=== PATIENT | female | born 1955 | race Caucasian/White ===

== ENCOUNTER 2016-08-01 13:10 | Emergency (ER) | payer MEDICARE ==
--- NOTE | 2016-08-04 12:41 | ER ---
ADMIT: 08/01/2016 RM/LOC: [facility] MR#: [id number] [address] [place] [id number] MANUELA MORALES [address] [address] Emergency Room Report SEX: F AGE: 60 : 1955 DATE: 08/01/2016 HISTORY OF PRESENT ILLNESS: A female, 60 years of age, unable to sleep due to pain, this has been going on for 2 months. She had a work accident where she had some issues with her back and having now difficulty walking and some numbness and weakness on her right leg. REVIEW OF SYSTEMS: Otherwise negative. PAST MEDICAL HISTORY: 1. Diabetes type 2. 2. Hypertension. 3. Arthritis. 4. Back pain. 5. GERD. 6. Herniated disk. PAST SURGICAL HISTORY: She also has had a thyroidectomy and cholecystectomy. MEDICATIONS: She takes: 1. Atenolol. 2. Gabapentin. 3. Zocor. 4. Omeprazole. 5. Metformin. 6. Glyburide. 7. Phenergan with tizanidine. PHYSICAL EXAMINATION: I am unable to do straight leg exam due to her habitus. VITAL SIGNS: Within normal limits. ADMIT: 08/01/2016 RM/LOC: [facility] MR#: [id number] [address] [address] MANUELA MORALES [address] [address] Emergency Room Report SEX: F AGE: 60 : 1955 EXTREMITIES: Nonedematous. Tenderness in the right mid buttocks area. LABORATORY DATA: Her UA shows rbc's of 5, so she has some mild hematuria. Lumbar strain, no x-rays were done. I contacted Dr. Phan, she stated that Dr. Núñez is supposed to call the patient for a shot in her back, so we sent her on her way with instructions to talk to May, Dr. Núñez's office nurse, who will be calling her this afternoon to set up a time for her lumbar shot. I gave her a muscle relaxer in the form of Valium, but advised that she needs to choose which one she takes, either the tizanidine or the Valium, but not both at the same time, and follow up with Dr. Núñez. Go home now, and no driving. SONNY Mack / Angel Michaud MD / julissa JOB #: [id number] CC: Angel Michuad MD, Attending Physician Dalton Núñez MD, Family Physician
== END 2016-08-01 14:50 | disposition home or self-care (01) ==
LOC: ER 13:10
DX: S39.012A Strain of muscle, fascia and tendon of lower back, initial encounter (principal); R31.9 Hematuria, unspecified; E11.9 Type 2 diabetes mellitus without complications; I10 Essential (primary) hypertension; Z90.49 Acquired absence of other specified parts of digestive tract; Z90.89 Acquired absence of other organs; Z79.84 Long term (current) use of oral hypoglycemic drugs; Z79.899 Other long term (current) drug therapy; X58.XXXA Exposure to other specified factors, initial encounter

== ENCOUNTER 2016-08-04 07:18 | Day surgery (SDC) | payer MEDICARE ==
[~2016-08-04] VITALS: Ht 160 cm; Wt 75.0 kg
--- NOTE | 2016-08-05 08:22 | OR ---
ADMIT: 08/04/2016 RM/LOC: [facility] MR#: [id number] [address] [address] ANGELITO SYD SIMRIA [address] [id number] Operative/Delivery Room Report SEX: F AGE: 60 : 1955 SURGERY DATE: 08/04/2016 SURGEON: Dalton Núñez MD MILLER KILN DRIED SALT: None. PREPROCEDURE DIAGNOSES: 1. Lumbar disk degeneration. 2. Lumbosacral neuritis. POSTPROCEDURE DIAGNOSES: 1. Lumbar disk degeneration. 2. Lumbosacral neuritis. PROCEDURE PERFORMED: L5-S1 interlaminar epidural injection. INDICATIONS FOR PROCEDURE: The patient is a pleasant female with history of chronic low back pain comes here for planned lumbar epidural steroid injection. ANESTHESIA: Local without sedation. ESTIMATED BLOOD LOSS: Zero. COMPLICATIONS: None immediately evident. Then 30 after the procedure, the patient had dizziness and fell, evaluated by anesthesiologist and referred to ER for further evaluation. DESCRIPTION OF PROCEDURE: After the patient was seen in the preoperative area, vitals signs were taken. Prior to the procedure, the risks, benefits, and alternative therapies were discussed at length. Patient consent was obtained and updated. The patient was taken to the fluoroscopy suite and placed on the fluoroscopy table in the prone position. Pressure points were padded to comfort, monitors applied, and a timeout performed. Fluoroscopy was brought in. The patient was sterilely prepped and draped in the usual manner with ChloraPrep solution, and 1% lidocaine was used to anesthetize the appropriate needle entry site. Utilizing a midline approach, ADMIT: 08/04/2016 RM/LOC: [facility] MR#: [id number] [address] [address] EATONMANUELA ESCAMILLA [address] [place] [address] Operative/Delivery Room Report SEX: F AGE: 60 : 1955 continuous loss of resistance technique with preservative-free normal saline and intermittent fluoroscopic guidance, the posterior epidural space was easily entered. Once the epidural space had been entered through L5-S1. The patient was injected with 2 mL of Isovue-300 and outlining of the posterior epidural space was observed with no evidence of vascular uptake and intrathecal migration. Next, a solution consisting of 10 mL of preservative- free normal saline and 80 mg of Depo-Medrol was injected. The needle was withdrawn. The patient was escorted back to the preoperative area and observed for a period of time. PLAN: Discharge instructions were given, followup scheduled. The patient was discharged home with a driver engineer. Dalton Núñez MD/ julissa JOB #: [id number] CC: Dalton Núñez, Attending Physician Shahrzad Phan, Family Physician
--- NOTE | 2016-09-27 22:23 | ER ---
ADMIT: 08/04/2016 RM/LOC: [facility] MR#: [id number] [id number] [facility] [place], [place] [address] MANUELA MORALES [address] [place] [address] Emergency Room Report SEX: F AGE: 60 : 1955 DATE: 08/04/2016 See T-sheet for complete H and P. ADDENDUM: A 60-year-old female, came in with mid mild back pain. She states that she has had a sensation of movement and spinning also. Her EKG was done, which showed sinus gwen rate of 24. Orthostatics were fine, and blood sugar was fine. She is discharged home with diagnosis of lightheadedness to follow up with primary care physician. Noah Nieto MD/ julissa JOB #: [id number] CC: Dalton Núñez MD, Attending Physician Shahrzad Phan MD, Family Physician
== END 2016-08-04 11:20 | disposition home or self-care (01) ==
LOC: SSS 07:18
PROC: B01BZZZ Fluoroscopy of Spinal Cord (ICD-10-PCS; principal; 2016-08-04)
PROC: 3E0R33Z Introduction of Anti-inflammatory into Spinal Canal, Percutaneous Approach (ICD-10-PCS; principal; 2016-08-04)
DX: G89.29 Other chronic pain (principal); M51.17 Intervertebral disc disorders with radiculopathy, lumbosacral region; I10 Essential (primary) hypertension; E11.9 Type 2 diabetes mellitus without complications; F41.9 Anxiety disorder, unspecified; Z79.899 Other long term (current) drug therapy; Z90.49 Acquired absence of other specified parts of digestive tract; Z98.890 Other specified postprocedural states

== ENCOUNTER 2016-08-10 22:43 | Emergency (ER) | payer MEDICARE ==
--- NOTE | 2016-08-18 11:03 | ER ---
ADMIT: 08/10/2016 RM/LOC: ER [facility] MR#: [id number] [facility] [place], [place] [address] MANUELA MORALES [address] [place] [address] Emergency Room Report SEX: F AGE: 60 : 1955 DATE: 08/10/2016 CHIEF COMPLAINT: Back pain. HISTORY OF PRESENT ILLNESS: A 60-year-old female, who presents with a week's worth of worsening low back and neck pain. States this pain has been persistent since she had an injection at Dr. Hdez's office. Primarily complains of pain and states that this has been associated with some dizziness and nausea. She describes the pain as aching and does not radiate. No fevers, chills, constipation, incontinence, nausea, vomiting, or problems urinating. Worse with movement and relieved by nothing. She does have a prescription for hydrocodone. She has not been taking this today. She tells me that she is very concerned about her blood pressure medication. She is taking her losartan and hydrochlorothiazide. She believes this is causing chronic damage to her kidneys and liver. Continues to take this medication. COURSE IN THE EMERGENCY ROOM: GENERAL: The patient was seen and examined. Afebrile and nontoxic, in no acute distress. Physical exam is significant for some paraspinal tenderness along the cervical spine. No midline pain. She is alert and oriented. BACK: She does have some tenderness across the musculature of the low back. Does not radiate. ABDOMEN: Soft and nontender. NEURO: She is alert and oriented. Sensation is intact in upper and lower extremities. While in the department, I did give her Zofran 4 mg ODT, Toradol 15 mg IM as well as Valium 5 mg p.o. She states she is feeling mildly improved. Ready for discharge. To continue her home medications as prescribed. IMPRESSION: Chronic low back pain. ADMIT: 08/10/2016 RM/LOC: ER [facility] MR#: [id number] [id number] [facility] [place], [place] [address] MANUELA MORALES [address] [place] [address] Emergency Room Report SEX: F AGE: 60 : 1955 DISPOSITION: The patient was discharged home. I did have a long discussion with her regarding her hypertension medications. I told her if she has concerns about her medications, and if she is not comfortable, she certainly has the right to not take this medication. I did caution her that if she stops taking this medication, she does need to follow up with her primary provider as untreated, the hypertension has dangerous ramifications. She is to continue hydrocodone as prescribed. She has chronic pain, has not been taking her pain medicine today. Increase fluids. Return home and rest. She should follow up with her primary. Questions were sought and answered to the best of my ability and to the patient's satisfaction. Discharged to home in stable condition. SONNY Avila / Mina Marquez MD / julissa JOB #: [id number] CC: Mina Marquez MD, Attending Physician Rome Hdez MD, Family Physician
== END 2016-08-11 01:28 | disposition home or self-care (01) ==
LOC: ER 22:43
DX: G89.29 Other chronic pain (principal); M54.5 Low back pain; E11.9 Type 2 diabetes mellitus without complications; I10 Essential (primary) hypertension